=== PATIENT | female | born 1960 | race Caucasian/White ===

== ENCOUNTER 2024-05-16 19:49 | Emergency (ER) | payer BC | END 2024-05-16 20:02 | disposition left against medical advice (07) | LOC: MADERS 19:49 | DX: Z53.21 Procedure and treatment not carried out due to patient leaving prior to being seen by health care provider (principal) ==

== ENCOUNTER 2024-05-16 20:36 | Emergency (ER) | payer BC | END 2024-05-16 21:08 | disposition home or self-care (01) | LOC: MADERS 20:36 | DX: S00.33XA Contusion of nose, initial encounter (principal); R04.0 Epistaxis; I10 Essential (primary) hypertension; W21.03XA Struck by baseball, initial encounter; Y93.64 Activity, baseball | CPT/HCPCS: 99283 ==